=== PATIENT | female | born 1975 | race African-American/Black ===

== ENCOUNTER 2018-02-28 16:34 | Emergency (ER) | payer MEDICARE, MEDICAID ==
[~2018-02-28] VITALS: Ht 154.9 cm; Wt 57.9 kg
[2018-02-28 16:37] VITALS: BP 139/88
[2018-02-28] MEDS ORDERED: AZIT-57 PO (17:23)
== END 2018-02-28 17:37 | disposition home or self-care (01) ==
LOC: ER 16:35
DX: H66.93 Otitis media, unspecified, bilateral (principal); H57.13 Ocular pain, bilateral; F12.90 Cannabis use, unspecified, uncomplicated
CPT/HCPCS: 99283